=== PATIENT | female | born 1955 | race Caucasian/White ===

== ENCOUNTER 2019-01-24 13:53 | Day surgery (SDC) | payer OTHER ==
[~2019-01-24 13:53] MED LIST: CEFAZOLIN 1 GM INJ; SEVOFLURANE 15 MIN
[2019-01-24 15:13] LABS: ADD MAN DIFF? NO
[2019-01-24 15:15] LABS: BASOPHILS % 0.7 % (0.0-2.0); EOSINOPHILS # 0.1 10^3/ul (0.0-0.5); HEMATOCRIT 43.8 % (37.0-47.0); HEMOGLOBIN 15.6 g/dl (12.0-16.0); LYMPHOCYTES # 1.5 10^3/ul (0.8-2.9); LYMPHOCYTES % 24.7 % (15.0-51.0); MEAN CORPUSCULAR HEMOGLOBIN 42.3 pg (29.0-33.0); MEAN CORPUSCULAR HGB CONC 35.6 g/dl (32.0-37.0); MEAN CORPUSCULAR VOLUME 118.7 fl (82.0-101.0); MEAN PLATELET VOLUME 8.9 fl (7.4-10.4); MONOCYTE # 0.3 10^3/ul (0.3-0.9); MONOCYTES % 5.7 % (0.0-11.0); NEUTROPHILS % 66.6 % (39.0-77.0); PLATELET COUNT 248 10^3/UL (140-415); RED BLOOD COUNT 3.69 10^6/ul (4.20-5.40); RED CELL DISTRIBUTION WIDTH 14.8 % (11.5-14.5)
[2019-01-24 15:15] LABS: WHITE BLOOD COUNT 5.9 10^3/ul (4.8-10.8)
[2019-01-24] MEDS ORDERED: DIPHENHYDRAMINE 50 MG INJ IV (15:30)
[2019-01-24] MEDS ORDERED: MEPERIDINE 25 MG INJ IV (15:30)
[2019-01-24] MEDS ORDERED: HYDROmorphONE 1 MG/5 ML IV SYRINGE IV ×2 (15:30)
[2019-01-24] MEDS ORDERED: FENTAnyl 50 MCG/ML VIAL IV (15:30)
[2019-01-24] MEDS ORDERED: PROCHLORPERAZINE 10 MG INJ IV (15:30)
[2019-01-24] MEDS ORDERED: ONDANSETRON 4 MG INJ IV (15:30)
[2019-01-24 15:33] LABS: ALANINE AMINOTRANSFERASE 36 IU/L (13-69); ALBUMIN/GLOBULIN RATIO 1.37; ALKALINE PHOSPHATASE 97 IU/L (42-121); ANION GAP 8 (5-13); BILIRUBIN,TOTAL 1.2 mg/dl (0.2-1.3); CALCIUM 9.4 mg/dl (8.4-10.2); CARBON DIOXIDE 25 mmol/L (21-31); CHLORIDE 105 mmol/L (97-110); CREATININE 0.66 mg/dl (0.44-1.00); Estimated GFR > 60 mL/min (>60); GLUCOSE 109 mg/dl (70-220); POTASSIUM 4.4 mmol/L (3.5-5.1); SODIUM 138 mmol/L (135-144); TOTAL PROTEIN 6.9 g/dl (6.1-8.1)
[2019-01-24 15:36] LABS: INR 0.99; PARTIAL THROMBOPLASTIN TIME 26.3 Sec (23.0-35.0); PROTIME 13.2 Sec (11.9-14.9)
[2019-01-24 15:38] LABS: ASPARTATE AMINO TRANSFERASE 53 IU/L (15-46); BILIRUBIN,INDIRECT 1.2 mg/dl (0-1.1); BLOOD UREA NITROGEN 5 mg/dl (7-20)
[2019-01-24] MEDS ORDERED: MIDAZOLAM 1 MG/ML 2 ML INJ (16:31)
[2019-01-24] MEDS ORDERED: LIDOCAINE 2% (SDV) 5 ML INJ (16:31)
[2019-01-24] MEDS ORDERED: PHENYLephrine 10 MG INJ (16:51)
[2019-01-24] MEDS ORDERED: ONDANSETRON 4 MG INJ (17:12)
[2019-01-24] MEDS ORDERED: PROPOFOL 20 ML ×2 (17:12)
[2019-01-24] MEDS ORDERED: FAMOTIDINE 20 MG INJ (17:12)
[2019-01-24] MEDS ORDERED: DEXAMETHASONE 4 MG/ML 5 ML INJ (17:12)
[2019-01-24] MEDS: BUPIVACAINE 0.25% (MPF) 30 ML INJ (17:16)
[2019-01-24] MEDS ORDERED: FENTAnyl 50 MCG/ML VIAL (17:17)
[2019-01-24] MEDS: OXYCODONE/ACETAMINOPHEN (5/325) TAB PO (19:26)
== END 2019-01-24 20:07 | disposition home or self-care (01) ==
LOC: SDS 13:53
DX: M72.0 Palmar fascial fibromatosis [Dupuytren] (principal); I10 Essential (primary) hypertension
CPT/HCPCS: 26123; 71045; 80053; 85025; 85610; 85730; 93005